=== PATIENT | male | born 1975 | race African-American/Black ===

== ENCOUNTER 2017-04-19 18:44 | Emergency (ER) | payer SELFPAY ==
[~2017-04-19] VITALS: Ht 175.3 cm; Wt 100.0 kg
[~2017-04-19 18:44] MED LIST: APRESOLINE 25MG25 MG PO; ASPIRIN 32325 MG/TAB PO; CARDIZEM120 MG PO; CELEXA 20MG20 MG/TAB PO; CELEXA10 MG PO; DESYREL 50MG50 MG PO; DOXAZOSIN PO; FLEXERIL 1010 MG/TAB PO; LEVAQUIN 5500 MG/TA1 PO; LISINOPRIL/HCTZ1 TA2 PO; LISINOPRIL20 MG PO; LOPRESSOR100 MG PO; MOBIC15 MG PO; MOTRIN 600600 MG/TAB PO; NO HOME MEDICATIONS; PHENERGAN 25 TA25 MG PO; PRILOSEC2.5 MG/Pac PO; PRILOSEC20 M1 PO; PRINZIDE 12.5 M1 TA1 PO; REGLAN 10MG10 MG/TAB PO; ULTRAM 50MG TAB50 MG PO; ZESTRIL 20MG TA20 MG PO; ZOFRAN 4MG T4 MG/TAB PO; ZOLOFT 25MG25 MG PO
[2017-04-19 18:51] VITALS: TEMP 98.2
[2017-04-19] MEDS ORDERED: PEN-VEE K500 MG PO (19:38)
[2017-04-19] MEDS ORDERED: ULTRAM 50MG TAB50 MG PO (19:39)
[2017-04-19] MEDS ORDERED: NORCO 325 MG-51 TAB PO (19:39)
[2017-04-19 19:49] VITALS: BP 160/94; PULSE 65
== END 2017-04-19 19:49 | disposition home or self-care (01) ==
LOC: COL.ER 18:44
DX: K08.89 Other specified disorders of teeth and supporting structures (principal); I10 Essential (primary) hypertension; Z87.891 Personal history of nicotine dependence

== ENCOUNTER 2018-02-20 10:21 | Emergency (ER) | payer SELFPAY ==
[~2018-02-20] VITALS: Ht 175.3 cm; Wt 104.5 kg
[~2018-02-20 10:21] MED LIST changes: +NORCO 325 MG-51 TAB PO; +PEN-VEE K500 MG PO
[2018-02-20 11:30] VITALS: TEMP 98.3
[2018-02-20 11:52] LABS: HEMATOCRIT 49.9 % (42.0-52.0); HEMOGLOBIN 17.3 g/dl (13.5-18.0); MEAN CELL VOLUME 87 fl (80.0-100.0); MEAN CORPUSCULAR HEMOGLOBIN 30 pg (27.0-31.0); MEAN CORPUSCULAR HGB CONC 35 g/dl (33.0-37.0); MEAN PLATELET VOLUME 11.7 fl (7.4-10.4); PLATELET COUNT 244 K/mm3 (130-400); RED BLOOD COUNT 5.75 M/mm3 (4.20-5.60); REDCELL DISTRIBUTION WIDTH-CV 14.4 % (11.5-14.5)
[2018-02-20 12:05] LABS: CALCIUM 10.7 mg/dL (8.4-10.2); CREATININE, serum 2.04 mg/dL (0.66-1.25); EOSINOPHIL 1 % (0-4); LYMPHOCYTE 10 % (20.0-51.0); MAGNESIUM 2.2 mg/dL (1.6-2.3); NEUTROPHILS 67 % (42.0-75.2); POTASSIUM 4.2 mmol/L (3.4-5.0); TOTAL PROTEIN 10.4 gm/dL (6.4-8.2)
[2018-02-20 12:06] LABS: PLATELET ESTIMATE NORMAL (NORMAL)
[2018-02-20] MEDS ORDERED: PHENERGAN 25 TA25 MG PO (15:24)
[2018-02-20] MEDS ORDERED: ZOFRAN ODT4 MG PO (15:24)
[2018-02-20] MEDS ORDERED: NORCO 325 MG-51 TAB PO (15:24)
[2018-02-20 16:22] VITALS: BP 144/100; PULSE 109
== END 2018-02-20 16:35 | disposition home or self-care (01) ==
LOC: COL.ER 10:21
PROVIDERS: Emergency Medicine
DX: R11.2 Nausea with vomiting, unspecified (principal); K44.9 Diaphragmatic hernia without obstruction or gangrene; I10 Essential (primary) hypertension; R74.8 Abnormal levels of other serum enzymes; Z79.82 Long term (current) use of aspirin
CPT/HCPCS: J2405; J2550; J7030; Q9967

== ENCOUNTER 2018-03-03 16:08 | Emergency (ER) | payer SELFPAY ==
[~2018-03-03] VITALS: Ht 175.3 cm; Wt 100.0 kg
[~2018-03-03 16:08] MED LIST changes: +ZOFRAN ODT4 MG PO
[2018-03-03 16:20] VITALS: TEMP 98.2
[2018-03-03 16:41] LABS: BASO # 0.1 (0.0-0.2); BASO % 0.5 % (0.0-2.0); EOS # 0.2 (0.0-0.7); EOS % 1.6 % (0-4.0); GRAN # 8.7 (1.4-6.5); GRAN % 71.4 % (42.2-75.2); HEMATOCRIT 40.5 % (42.0-52.0); HEMOGLOBIN 14.1 g/dl (13.5-18.0); LYMPH # 2.4 (1.2-3.4); LYMPH % 19.6 % (20.0-51.0); MEAN CELL VOLUME 86 fl (80.0-100.0); MEAN CORPUSCULAR HEMOGLOBIN 30 pg (27.0-31.0); MEAN CORPUSCULAR HGB CONC 35 g/dl (33.0-37.0); MEAN PLATELET VOLUME 11.4 fl (7.4-10.4); MONO # 0.8 (0.1-0.6); MONO % 6.7 % (1.7-9.3); PLATELET COUNT 165 K/mm3 (130-400); REDCELL DISTRIBUTION WIDTH-CV 13.2 % (11.5-14.5)
[2018-03-03 16:53] LABS: ALANINE AMINOTRANSFERASE 31 U/L (21-72); ALBUMIN 4.5 gm/dL (3.5-5.0); ALKALINE PHOSPHATASE 71 U/L (50-136); ANION GAP 14 mmol/L (7-16); AST,SGOT 18 U/L (15-37); BILIRUBIN,TOTAL 0.3 mg/dL (0.0-1.0); BLOOD UREA NITROGEN 14 mg/dL (9-20); CALCIUM 9.8 mg/dL (8.4-10.2); CARBON DIOXIDE 28 mmol/L (22-30); CHLORIDE 104 mmol/L (98-107); CREATININE, serum 1.24 mg/dL (0.66-1.25); GLUCOSE 126 mg/dL (74-106); LIPASE 106 U/L (23-300); POTASSIUM 4.3 mmol/L (3.4-5.0); SODIUM 145 mmol/L (137-145); TOTAL PROTEIN 8.3 gm/dL (6.4-8.2)
[2018-03-03 16:56] LABS: ALCOHOL(ethanol),MEDICAL < 10 mg/dL; C-REACTIVE PROTEIN < 0.5 mg/dL (0.0-0.9)
[2018-03-03 17:02] LABS: TROPONIN-I < 0.012 ng/mL (0.000-0.034)
[2018-03-03] MEDS ORDERED: ZOLOFT 50MG50 MG PO (17:26)
[2018-03-03] MEDS ORDERED: PHENERGAN25 MG RC (18:00)
[2018-03-03 18:31] VITALS: BP 166/108
[2018-03-03 19:06] VITALS: PULSE 103
== END 2018-03-03 19:06 | disposition home or self-care (01) ==
LOC: COL.ER 16:08
PROVIDERS: Physician Assistant
DX: R10.12 Left upper quadrant pain (principal); R11.2 Nausea with vomiting, unspecified; F32.9 Major depressive disorder, single episode, unspecified; I42.8 Other cardiomyopathies; Z79.82 Long term (current) use of aspirin
CPT/HCPCS: J2270; J2405; J2550; J7030

== ENCOUNTER → 2018-03-30 | Outpatient (CLI) | payer SELFPAY ==
[2018-03-30] VITALS (7 sets, daily range): BP systolic 150–235; BP diastolic 95–142; PULSE 67–85
[~2018-03-30] VITALS: Ht 175.3 cm; Wt 104.4 kg
[~2018-03-30] MED LIST changes: +ASPIRIN 81M81 MG/TA2 PO; +PHENERGAN25 MG RC; +ZOLOFT 50MG50 MG PO
== END ==
LOC: COL.CARD 07:36
DX: R07.89 Other chest pain (principal)
CPT/HCPCS: A9502; J0360; J2785

== ENCOUNTER 2018-04-05 18:54 | Observation (INO) | payer SELFPAY ==
[~2018-04-05] VITALS: Ht 175.3 cm; Wt 101.9 kg
[2018-04-05] MEDS ORDERED: PHENERGAN 25 TA25 MG PO (19:52)
[2018-04-05 20:01] LABS: COLLECTION METHOD CLEAN CATCH
[2018-04-05 20:08] LABS: ALANINE AMINOTRANSFERASE 26 U/L (21-72); ALBUMIN 4.6 gm/dL (3.5-5.0); ALKALINE PHOSPHATASE 57 U/L (50-136); ANION GAP 19 mmol/L (7-16); AST,SGOT 24 U/L (15-37); BILIRUBIN,TOTAL 1.4 mg/dL (0.0-1.0); BLOOD UREA NITROGEN 43 mg/dL (9-20); CALCIUM 9.4 mg/dL (8.4-10.2); CARBON DIOXIDE 24 mmol/L (22-30); CHLORIDE 93 mmol/L (98-107); CREATINE KINASE 215 U/L (55-170); CREATININE, serum 3.34 mg/dL (0.66-1.25); GLUCOSE 101 mg/dL (74-106); LIPASE 125 U/L (23-300); POTASSIUM 3.3 mmol/L (3.4-5.0); SODIUM 136 mmol/L (137-145); TOTAL PROTEIN 8.7 gm/dL (6.4-8.2)
[2018-04-05 20:12] LABS: C-REACTIVE PROTEIN < 0.5 mg/dL (0.0-0.9)
[2018-04-05 20:14] LABS: HEMATOCRIT 47.9 % (42.0-52.0); HEMOGLOBIN 16.6 g/dl (13.5-18.0); MEAN CELL VOLUME 89 fl (80.0-100.0); MEAN CORPUSCULAR HEMOGLOBIN 31 pg (27.0-31.0); MEAN CORPUSCULAR HGB CONC 35 g/dl (33.0-37.0); PLATELET COUNT 244 K/mm3 (130-400); RED BLOOD COUNT 5.38 M/mm3 (4.20-5.60); REDCELL DISTRIBUTION WIDTH-CV 14.9 % (11.5-14.5)
[2018-04-05 20:15] LABS: HYALINE CAST >12 /lpf; MUCOUS Present /lpf; PH 5 (5-8); SQUAMOUS EPITHELIAL >50 /hpf; URINE APPEARANCE Turbid; URINE BACTERIA Rare /hpf; URINE BILIRUBIN Negative (NEGATIVE); URINE BLOOD Negative (NEGATIVE); URINE COLOR Amber; URINE GLUCOSE Negative (NEGATIVE); URINE KETONE Trace (NEGATIVE); URINE LEUKOCYTE ESTERASE 1+ (NEGATIVE); URINE NITRATE Negative (NEGATIVE); URINE PROTEIN(semi-quant) 2+ (NEGATIVE)
[2018-04-05 20:42] LABS: BAND 2 % (0-10); LYMPHOCYTE 28 % (20.0-51.0); NEUTROPHILS 56 % (42.0-75.2); PLATELET ESTIMATE NORMAL (NORMAL)
[2018-04-05 21:05] LABS: COLLECTION METHOD CLEAN CATCH
[2018-04-05 21:13] LABS: HYALINE CAST >12 /lpf; MUCOUS Present /lpf; PH 5 (5-8); URINE APPEARANCE Turbid; URINE BACTERIA Rare /hpf; URINE BILIRUBIN Positive (NEGATIVE); URINE BLOOD Negative (NEGATIVE); URINE COLOR Amber; URINE GLUCOSE Negative (NEGATIVE); URINE KETONE Negative (NEGATIVE); URINE LEUKOCYTE ESTERASE Negative (NEGATIVE); URINE NITRATE Negative (NEGATIVE); URINE PROTEIN(semi-quant) 2+ (NEGATIVE)
[2018-04-05] MEDS ORDERED: REGLAN 10MG10 MG/TAB PO (21:34)
[2018-04-05 22:21] VITALS: BP 110/56; PULSE 76; TEMP 98.9
[2018-04-05 22:46] VITALS: BP 98/63; PULSE 79; TEMP 98.1
[2018-04-05 23:00] VITALS: BP 101/57; PULSE 79; TEMP 98.4
[2018-04-05 23:15] VITALS: BP 103/54; PULSE 79; TEMP 98.4
[2018-04-06] VITALS (7 sets, daily range): BP systolic 105–136; BP diastolic 47–76; PULSE 53–76; TEMP 97.9–98.6
[2018-04-06 07:33] LABS: HEMATOCRIT 41.8 % (42.0-52.0); MEAN CELL VOLUME 91 fl (80.0-100.0); MEAN CORPUSCULAR HEMOGLOBIN 31 pg (27.0-31.0); MEAN CORPUSCULAR HGB CONC 34 g/dl (33.0-37.0); MEAN PLATELET VOLUME 11.8 fl (7.4-10.4); PLATELET COUNT 190 K/mm3 (130-400); RED BLOOD COUNT 4.58 M/mm3 (4.20-5.60); REDCELL DISTRIBUTION WIDTH-CV 14.9 % (11.5-14.5)
[2018-04-06 07:41] LABS: CALCIUM 8.1 mg/dL (8.4-10.2); CREATININE, serum 2.02 mg/dL (0.66-1.25); POTASSIUM 3.9 mmol/L (3.4-5.0)
[2018-04-06 07:44] LABS: HEMOGLOBIN 14.1 g/dl (13.5-18.0)
[2018-04-06 09:28] LABS: BAND 2 % (0-10); LYMPHOCYTE 26 % (20.0-51.0); METAMYELOCYTE 1 % (0-0); NEUTROPHILS 60 % (42.0-75.2); PLATELET ESTIMATE NORMAL (NORMAL)
[2018-04-07 04:20] VITALS: BP 134/94; PULSE 63; TEMP 97.5
[2018-04-07 06:53] LABS: CALCIUM 8.2 mg/dL (8.4-10.2); CREATININE, serum 1.13 mg/dL (0.66-1.25); POTASSIUM 3.9 mmol/L (3.4-5.0)
[2018-04-07 07:58] VITALS: BP 146/94; PULSE 72; TEMP 97.8
[2018-04-07 11:14] VITALS: BP 144/93; PULSE 66; TEMP 97.8
== END 2018-04-07 14:30 | disposition home or self-care (01) ==
LOC: COL.ER 18:54 → MEDICAL 20:35
PROVIDERS: Emergency Medicine; Nurse Practitioner Family
DX: N17.9 Acute kidney failure, unspecified (principal); E87.2 Acidosis; G43.A0 Cyclical vomiting, in migraine, not intractable; R68.84 Jaw pain; H92.02 Otalgia, left ear; E87.6 Hypokalemia; D72.829 Elevated white blood cell count, unspecified; I42.2 Other hypertrophic cardiomyopathy; F12.10 Cannabis abuse, uncomplicated; I10 Essential (primary) hypertension; I95.9 Hypotension, unspecified; E44.0 Moderate protein-calorie malnutrition; Z79.82 Long term (current) use of aspirin; Z79.899 Other long term (current) drug therapy; Z87.11 Personal history of peptic ulcer disease
CPT/HCPCS: C9113; G0378; J0696; J1644; J2405; J3010; J3480; J7030

== ENCOUNTER 2018-05-29 17:42 | Inpatient (IN) | payer SELFPAY ==
[~2018-05-29] VITALS: Ht 175.3 cm; Wt 89.8 kg
[2018-05-29 18:27] LABS: BASO # 0.1 (0.0-0.2); BASO % 0.3 % (0.0-2.0); EOS % 0.1 % (0-4.0); GRAN # 15.5 (1.4-6.5); GRAN % 79.7 % (42.2-75.2); HEMOGLOBIN 17.6 g/dl (13.5-18.0); LYMPH % 10.1 % (20.0-51.0); MEAN CELL VOLUME 90 fl (80.0-100.0); MEAN CORPUSCULAR HEMOGLOBIN 30 pg (27.0-31.0); MEAN CORPUSCULAR HGB CONC 34 g/dl (33.0-37.0); MEAN PLATELET VOLUME 12.2 fl (7.4-10.4); MONO # 1.8 (0.1-0.6); MONO % 9.2 % (1.7-9.3); PLATELET COUNT 171 K/mm3 (130-400); RED BLOOD COUNT 5.83 M/mm3 (4.20-5.60); REDCELL DISTRIBUTION WIDTH-CV 13.1 % (11.5-14.5)
[2018-05-29 18:30] LABS: HEMATOCRIT 52.4 % (42.0-52.0)
[2018-05-29 18:37] LABS: ALBUMIN 5.4 gm/dL (3.5-5.0); BILIRUBIN,TOTAL 1.1 mg/dL (0.0-1.0); CALCIUM 11.1 mg/dL (8.4-10.2); CREATININE, serum 1.67 mg/dL (0.66-1.25); POTASSIUM 5.4 mmol/L (3.4-5.0); TOTAL PROTEIN 9.8 gm/dL (6.4-8.2)
[2018-05-29 22:22] LABS: COLLECTION METHOD CLEAN CATCH
[2018-05-29 22:30] LABS: MUCOUS Present /lpf; PH 5 (5-8); URINE APPEARANCE Cloudy; URINE BACTERIA None Seen /hpf; URINE BILIRUBIN Negative (NEGATIVE); URINE BLOOD 2+ (NEGATIVE); URINE COLOR Amber; URINE GLUCOSE Negative (NEGATIVE); URINE KETONE Trace (NEGATIVE); URINE LEUKOCYTE ESTERASE Negative (NEGATIVE); URINE NITRATE Negative (NEGATIVE); URINE PROTEIN(semi-quant) 3+ (NEGATIVE); URINE RBC 0-2 /hpf; URINE UROBILINOGEN Negative (NEGATIVE)
[2018-05-29 23:31] VITALS: BP 180/111; PULSE 85; TEMP 97.4
[2018-05-29 23:39] VITALS: O2SAT 96
[2018-05-29 23:41] VITALS: O2SAT 96
[2018-05-29 23:45] VITALS: O2SAT 96
[2018-05-29 23:46] VITALS: O2SAT 98
[2018-05-29 23:48] VITALS: O2SAT 97; O2SAT 99
[2018-05-30] VITALS (522 sets, daily range): BP systolic 122–196; BP diastolic 73–124; PULSE 71–113; TEMP 97.6–98; O2SAT 85–100
[2018-05-30] MEDS ORDERED: ZOFRAN ODT4 MG PO (00:16)
[2018-05-30 07:40] LABS: BASO # 0.1 (0.0-0.2); BASO % 0.3 % (0.0-2.0); EOS % 0.2 % (0-4.0); GRAN # 14.6 (1.4-6.5); GRAN % 78.5 % (42.2-75.2); HEMATOCRIT 51.3 % (42.0-52.0); HEMOGLOBIN 17.2 g/dl (13.5-18.0); LYMPH # 2.4 (1.2-3.4); MEAN CELL VOLUME 91 fl (80.0-100.0); MEAN CORPUSCULAR HEMOGLOBIN 30 pg (27.0-31.0); MEAN CORPUSCULAR HGB CONC 34 g/dl (33.0-37.0); MEAN PLATELET VOLUME 11.9 fl (7.4-10.4); MONO # 1.4 (0.1-0.6); MONO % 7.5 % (1.7-9.3); PLATELET COUNT 174 K/mm3 (130-400); RED BLOOD COUNT 5.65 M/mm3 (4.20-5.60); REDCELL DISTRIBUTION WIDTH-CV 13.2 % (11.5-14.5)
[2018-05-30 07:49] LABS: BILIRUBIN,TOTAL 0.9 mg/dL (0.0-1.0); CALCIUM 9.9 mg/dL (8.4-10.2); CREATININE, serum 1.26 mg/dL (0.66-1.25); POTASSIUM 3.5 mmol/L (3.4-5.0); TOTAL PROTEIN 8.8 gm/dL (6.4-8.2)
[2018-05-30 08:03] LABS: TROPONIN-I 0.05 ng/mL (0.000-0.034)
[2018-05-31] VITALS (9 sets, daily range): BP systolic 108–199; BP diastolic 67–124; PULSE 62–86; TEMP 97.9–98.9; O2SAT 98–100
[2018-05-31 06:14] LABS: BASO # 0.1 (0.0-0.2); BASO % 0.3 % (0.0-2.0); EOS # 0.2 (0.0-0.7); EOS % 0.9 % (0-4.0); GRAN # 12.4 (1.4-6.5); GRAN % 73.6 % (42.2-75.2); HEMATOCRIT 50.8 % (42.0-52.0); HEMOGLOBIN 17.5 g/dl (13.5-18.0); LYMPH # 2.9 (1.2-3.4); MEAN CELL VOLUME 89 fl (80.0-100.0); MEAN CORPUSCULAR HEMOGLOBIN 31 pg (27.0-31.0); MEAN CORPUSCULAR HGB CONC 34 g/dl (33.0-37.0); MEAN PLATELET VOLUME 11.8 fl (7.4-10.4); MONO # 1.3 (0.1-0.6); MONO % 7.9 % (1.7-9.3); PLATELET COUNT 169 K/mm3 (130-400); RED BLOOD COUNT 5.74 M/mm3 (4.20-5.60); REDCELL DISTRIBUTION WIDTH-CV 12.8 % (11.5-14.5)
[2018-05-31 06:26] LABS: CALCIUM 9.9 mg/dL (8.4-10.2); CREATININE, serum 1.04 mg/dL (0.66-1.25); POTASSIUM 3.4 mmol/L (3.4-5.0)
[2018-06-01 03:59] VITALS: BP 121/45; PULSE 84; TEMP 97.4
[2018-06-01 07:34] VITALS: BP 120/69; PULSE 64; TEMP 98.1
[2018-06-01] MEDS ORDERED: COREG 25MG25 MG/TAB PO (07:56)
[2018-06-01 08:43] LABS: BASO # 0.1 (0.0-0.2); BASO % 0.4 % (0.0-2.0); EOS # 0.2 (0.0-0.7); EOS % 1.5 % (0-4.0); GRAN # 9.1 (1.4-6.5); LYMPH % 21.6 % (20.0-51.0); MEAN CELL VOLUME 90 fl (80.0-100.0); MEAN CORPUSCULAR HGB CONC 34 g/dl (33.0-37.0); MONO # 1.4 (0.1-0.6); MONO % 10.3 % (1.7-9.3); PLATELET COUNT 199 K/mm3 (130-400); RED BLOOD COUNT 5.96 M/mm3 (4.20-5.60); REDCELL DISTRIBUTION WIDTH-CV 12.5 % (11.5-14.5)
[2018-06-01 08:44] LABS: HEMATOCRIT 53.9 % (42.0-52.0); HEMOGLOBIN 18.1 g/dl (13.5-18.0); MEAN CORPUSCULAR HEMOGLOBIN 30 pg (27.0-31.0)
[2018-06-01 08:54] LABS: CALCIUM 10.6 mg/dL (8.4-10.2); CREATININE, serum 2.58 mg/dL (0.66-1.25); POTASSIUM 3.8 mmol/L (3.4-5.0)
[2018-06-01 10:06] LABS: CALCIUM 10.5 mg/dL (8.4-10.2); CREATININE, serum 2.44 mg/dL (0.66-1.25); POTASSIUM 3.8 mmol/L (3.4-5.0)
[2018-06-01 11:34] VITALS: BP 115/64; PULSE 62; TEMP 98.1
[2018-06-01 16:23] VITALS: BP 120/80; PULSE 79; TEMP 98.9
[2018-06-01 20:20] VITALS: BP 91/46; PULSE 80; TEMP 98.5
[2018-06-02 00:09] VITALS: BP 88/58; PULSE 72; TEMP 98.8
[2018-06-02 04:44] VITALS: BP 131/80; PULSE 64; TEMP 98.3
[2018-06-02 06:58] LABS: BASO # 0.1 (0.0-0.2); BASO % 0.5 % (0.0-2.0); EOS # 0.4 (0.0-0.7); EOS % 2.9 % (0-4.0); GRAN # 7.5 (1.4-6.5); GRAN % 57.8 % (42.2-75.2); HEMATOCRIT 49.1 % (42.0-52.0); HEMOGLOBIN 16.5 g/dl (13.5-18.0); LYMPH # 3.6 (1.2-3.4); LYMPH % 28.1 % (20.0-51.0); MEAN CELL VOLUME 90 fl (80.0-100.0); MEAN CORPUSCULAR HEMOGLOBIN 30 pg (27.0-31.0); MEAN CORPUSCULAR HGB CONC 34 g/dl (33.0-37.0); MEAN PLATELET VOLUME 12.1 fl (7.4-10.4); MONO # 1.4 (0.1-0.6); MONO % 10.4 % (1.7-9.3); PLATELET COUNT 191 K/mm3 (130-400); RED BLOOD COUNT 5.44 M/mm3 (4.20-5.60); REDCELL DISTRIBUTION WIDTH-CV 12.4 % (11.5-14.5)
[2018-06-02 07:14] LABS: CALCIUM 9.5 mg/dL (8.4-10.2); CREATININE, serum 2.91 mg/dL (0.66-1.25); POTASSIUM 3.3 mmol/L (3.4-5.0)
[2018-06-02 08:07] VITALS: BP 121/72; PULSE 66; TEMP 98.5
[2018-06-02 13:14] VITALS: BP 124/86; PULSE 85; TEMP 98.6
[2018-06-02 15:18] LABS: COLLECTION METHOD CLEAN CATCH
[2018-06-02 15:33] LABS: TRICYCLIC ANTIDEPRESS URINE NEGATIVE
[2018-06-02 15:35] LABS: URINE PROTEIN:CREAT RATIO 0.04 (0.00-0.14)
[2018-06-02 15:36] LABS: HYALINE CAST >12 /lpf; MUCOUS Present /lpf; PH 5 (5-8); URINE APPEARANCE Hazy; URINE BACTERIA None Seen /hpf; URINE BILIRUBIN Negative (NEGATIVE); URINE BLOOD Negative (NEGATIVE); URINE COLOR Yellow; URINE GLUCOSE Negative (NEGATIVE); URINE KETONE Negative (NEGATIVE); URINE LEUKOCYTE ESTERASE Negative (NEGATIVE); URINE NITRATE Negative (NEGATIVE); URINE PROTEIN(semi-quant) 1+ (NEGATIVE); URINE RBC 0-2 /hpf; URINE UROBILINOGEN Negative (NEGATIVE)
[2018-06-02 15:43] LABS: CREATININE, serum 2.02 mg/dL (0.66-1.25); FRACTIONAL EXCRETION OF NA+ 0.2 %
[2018-06-02 15:50] VITALS: BP 124/80; PULSE 70; TEMP 98.6
[2018-06-02 19:33] VITALS: BP 123/75; PULSE 73; TEMP 98.8
[2018-06-03 00:23] VITALS: BP 111/64; PULSE 61; TEMP 98.6
[2018-06-03 04:19] VITALS: BP 147/85; PULSE 58; TEMP 98.2
[2018-06-03 07:40] VITALS: BP 129/81; PULSE 63; TEMP 98.5
[2018-06-03 12:18] VITALS: BP 178/101; PULSE 62; TEMP 98.7
[2018-06-03 12:35] LABS: CALCIUM 9.5 mg/dL (8.4-10.2); CREATININE, serum 1.41 mg/dL (0.66-1.25); POTASSIUM 3.8 mmol/L (3.4-5.0)
[2018-06-03 15:43] VITALS: BP 177/108; PULSE 67; TEMP 98.5
[2018-06-03 20:05] VITALS: BP 174/125; PULSE 73; TEMP 98.5
[2018-06-04] VITALS (9 sets, daily range): BP systolic 134–208; BP diastolic 69–120; PULSE 64–72; TEMP 97.6–98.8
[2018-06-04 08:40] LABS: CALCIUM 9.4 mg/dL (8.4-10.2); CREATININE, serum 1.29 mg/dL (0.66-1.25); POTASSIUM 3.8 mmol/L (3.4-5.0)
[2018-06-04 09:27] LABS: BASO # 0.1 (0.0-0.2); BASO % 0.6 % (0.0-2.0); EOS # 0.3 (0.0-0.7); EOS % 2.7 % (0-4.0); GRAN # 7.8 (1.4-6.5); GRAN % 62.4 % (42.2-75.2); HEMATOCRIT 45.5 % (42.0-52.0); HEMOGLOBIN 15.6 g/dl (13.5-18.0); LYMPH % 23.9 % (20.0-51.0); MEAN CELL VOLUME 90 fl (80.0-100.0); MEAN CORPUSCULAR HEMOGLOBIN 31 pg (27.0-31.0); MEAN CORPUSCULAR HGB CONC 34 g/dl (33.0-37.0); MEAN PLATELET VOLUME 12.9 fl (7.4-10.4); MONO # 1.3 (0.1-0.6); MONO % 10.2 % (1.7-9.3); PLATELET COUNT 162 K/mm3 (130-400); RED BLOOD COUNT 5.07 M/mm3 (4.20-5.60)
[2018-06-05 00:50] VITALS: BP 145/77; PULSE 70; TEMP 97.8
[2018-06-05 04:21] VITALS: BP 143/74; PULSE 64; TEMP 98.7
[2018-06-05 07:38] LABS: BASO # 0.1 (0.0-0.2); BASO % 0.6 % (0.0-2.0); EOS # 0.4 (0.0-0.7); EOS % 4.6 % (0-4.0); GRAN # 4.3 (1.4-6.5); GRAN % 47.9 % (42.2-75.2); HEMATOCRIT 40.8 % (42.0-52.0); LYMPH # 3.2 (1.2-3.4); MEAN CELL VOLUME 90 fl (80.0-100.0); MEAN CORPUSCULAR HEMOGLOBIN 30 pg (27.0-31.0); MEAN CORPUSCULAR HGB CONC 33 g/dl (33.0-37.0); MEAN PLATELET VOLUME 12.8 fl (7.4-10.4); MONO % 10.7 % (1.7-9.3); PLATELET COUNT 138 K/mm3 (130-400); RED BLOOD COUNT 4.53 M/mm3 (4.20-5.60)
[2018-06-05 07:51] LABS: CALCIUM 8.8 mg/dL (8.4-10.2); CREATININE, serum 1.17 mg/dL (0.66-1.25); HEMOGLOBIN 13.6 g/dl (13.5-18.0); POTASSIUM 3.4 mmol/L (3.4-5.0)
[2018-06-05 12:27] VITALS: BP 155/85; PULSE 79; TEMP 98.2
[2018-06-05] MEDS ORDERED: PROTONIX 40MG T40 MG PO (15:09)
[2018-06-05] MEDS ORDERED: NORVASC 10MG10 MG PO (15:09)
[2018-06-05] MEDS ORDERED: COENZYME Q-10200 M1 PO (15:09)
[2018-06-05] MEDS ORDERED: AMITRIPTYLINE H50 M1 PO (15:09)
[2018-06-05] MEDS ORDERED: ZOFRAN 4MG T4 MG/TAB PO (15:09)
[2018-06-05] MEDS ORDERED: APRESOLINE 25MG25 MG PO (15:09)
[2018-06-05] MEDS ORDERED: L-CARNITINE500 M1 PO (15:09)
[2018-06-05 18:56] LABS: KAPPA FREE LIGHT CHAIN-SERUM 1.53 mg/dL (()); LAMDA FREE LIGHT CHAIN SERUM 1.84 mg/dL (())
== END 2018-06-05 16:57 | disposition home or self-care (01) | DRG 682 ==
LOC: COL.ER 17:42 → ICU 22:26 → MEDICAL 05-31 15:39
PROVIDERS: Family Medicine; Hospitalist; Internal Medicine Gastroenterology; Internal Medicine Nephrology; Nurse Practitioner Family; Physician Assistant
PROC: 0DB68ZX Excision of Stomach, Via Natural or Artificial Opening Endoscopic, Diagnostic (ICD-10-PCS; principal; 2018-06-04 07:30)
DX: N17.9 Acute kidney failure, unspecified (principal); I21.A1 Myocardial infarction type 2; I42.1 Obstructive hypertrophic cardiomyopathy; I16.0 Hypertensive urgency; E87.5 Hyperkalemia; Z87.11 Personal history of peptic ulcer disease; F12.10 Cannabis abuse, uncomplicated; G43.A0 Cyclical vomiting, in migraine, not intractable; K64.9 Unspecified hemorrhoids
CPT/HCPCS: 99223-AI; 99232-AI; 99239; A9541; C9113; G0378; J0360; J0780; J1644; J2405; J2550; J2704; J7030; J7050

== ENCOUNTER 2018-07-17 10:43 | Emergency (ER) | payer SELFPAY ==
[~2018-07-17] VITALS: Ht 175.3 cm; Wt 90.9 kg
[~2018-07-17 10:43] MED LIST changes: +AMITRIPTYLINE H50 M1 PO; +COENZYME Q-10200 M1 PO; +COREG 25MG25 MG/TAB PO; +L-CARNITINE500 M1 PO; +NORVASC 10MG10 MG PO; +PROTONIX 40MG T40 MG PO
[2018-07-17 14:21] VITALS: TEMP 98.6
[2018-07-17 15:16] LABS: COLLECTION METHOD CLEAN CATCH
[2018-07-17 15:26] LABS: MUCOUS Present /lpf; PH 5 (5-8); URINE APPEARANCE Cloudy; URINE BACTERIA Rare /hpf; URINE BILIRUBIN Negative (NEGATIVE); URINE BLOOD Negative (NEGATIVE); URINE COLOR Yellow; URINE GLUCOSE Negative (NEGATIVE); URINE KETONE Negative (NEGATIVE); URINE LEUKOCYTE ESTERASE Negative (NEGATIVE); URINE NITRATE Negative (NEGATIVE); URINE PROTEIN(semi-quant) 1+ (NEGATIVE); URINE RBC 0-2 /hpf
[2018-07-17 15:41] LABS: BASO # 0.1 (0.0-0.2); BASO % 0.5 % (0.0-2.0); EOS # 0.4 (0.0-0.7); EOS % 3.5 % (0-4.0); GRAN % 58.4 % (42.2-75.2); HEMATOCRIT 45.9 % (42.0-52.0); HEMOGLOBIN 15.5 g/dl (13.5-18.0); LYMPH # 3.3 (1.2-3.4); LYMPH % 27.8 % (20.0-51.0); MEAN CELL VOLUME 89 fl (80.0-100.0); MEAN CORPUSCULAR HEMOGLOBIN 30 pg (27.0-31.0); MEAN CORPUSCULAR HGB CONC 34 g/dl (33.0-37.0); MEAN PLATELET VOLUME 11.3 fl (7.4-10.4); MONO # 1.1 (0.1-0.6); MONO % 9.5 % (1.7-9.3); PLATELET COUNT 198 K/mm3 (130-400); RED BLOOD COUNT 5.15 M/mm3 (4.20-5.60); REDCELL DISTRIBUTION WIDTH-CV 12.9 % (11.5-14.5)
[2018-07-17 16:03] LABS: ALBUMIN 4.5 gm/dL (3.5-5.0); BILIRUBIN,TOTAL 0.6 mg/dL (0.0-1.0); C-REACTIVE PROTEIN 0.5 mg/dL (0.0-0.9); CALCIUM 9.1 mg/dL (8.4-10.2); CREATININE, serum 1.15 mg/dL (0.66-1.25); POTASSIUM 3.4 mmol/L (3.4-5.0); TOTAL PROTEIN 7.7 gm/dL (6.4-8.2)
[2018-07-17 17:43] VITALS: BP 136/80; PULSE 60
[2018-07-18] MEDS ORDERED: PHENERGAN 25 TA25 MG PO (19:37)
== END 2018-07-17 17:50 | disposition home or self-care (01) ==
LOC: COL.ER 10:43
PROVIDERS: Nurse Practitioner
DX: B34.9 Viral infection, unspecified (principal); E86.0 Dehydration; R53.81 Other malaise; I10 Essential (primary) hypertension; F12.90 Cannabis use, unspecified, uncomplicated
CPT/HCPCS: J2405; J7030

== ENCOUNTER 2018-07-18 16:24 | Emergency (ER) | payer SELFPAY ==
[~2018-07-18] VITALS: Ht 175.3 cm; Wt 90.9 kg
[2018-07-18 16:28] VITALS: BP 195/116; TEMP 98.1
[2018-07-18 18:42] LABS: BASO % 0.1 % (0.0-2.0); EOS % 0.1 % (0-4.0); GRAN # 11.5 (1.4-6.5); GRAN % 85.1 % (42.2-75.2); HEMATOCRIT 46.5 % (42.0-52.0); HEMOGLOBIN 16.1 g/dl (13.5-18.0); LYMPH # 1.2 (1.2-3.4); LYMPH % 8.9 % (20.0-51.0); MEAN CELL VOLUME 87 fl (80.0-100.0); MEAN CORPUSCULAR HEMOGLOBIN 30 pg (27.0-31.0); MEAN CORPUSCULAR HGB CONC 35 g/dl (33.0-37.0); MEAN PLATELET VOLUME 11.4 fl (7.4-10.4); MONO # 0.7 (0.1-0.6); MONO % 5.4 % (1.7-9.3); PLATELET COUNT 192 K/mm3 (130-400); RED BLOOD COUNT 5.34 M/mm3 (4.20-5.60); REDCELL DISTRIBUTION WIDTH-CV 12.5 % (11.5-14.5)
[2018-07-18 18:55] LABS: ALBUMIN 4.9 gm/dL (3.5-5.0); BILIRUBIN,TOTAL 0.6 mg/dL (0.0-1.0); CALCIUM 9.9 mg/dL (8.4-10.2); CREATININE, serum 1.24 mg/dL (0.66-1.25); POTASSIUM 3.6 mmol/L (3.4-5.0); TOTAL PROTEIN 8.5 gm/dL (6.4-8.2)
[2018-07-18] MEDS ORDERED: PHENERGAN 25 TA25 MG PO (19:37)
[2018-07-18 21:11] VITALS: PULSE 87
== END 2018-07-18 21:13 | disposition home or self-care (01) ==
LOC: COL.ER 16:24
PROVIDERS: Emergency Medicine
DX: N19 Unspecified kidney failure (principal); R11.2 Nausea with vomiting, unspecified; I10 Essential (primary) hypertension
CPT/HCPCS: J2060; J2405; J7030

== ENCOUNTER 2018-11-26 10:32 | Emergency (ER) | payer BC ==
[~2018-11-26] VITALS: Ht 175.3 cm; Wt 90.9 kg
[2018-11-26 10:36] VITALS: TEMP 97.9
[2018-11-26 11:05] LABS: BASO # 0.1 (0.0-0.2); BASO % 0.4 % (0.0-2.0); EOS # 0.1 (0.0-0.7); EOS % 0.7 % (0-4.0); GRAN % 66.8 % (42.2-75.2); HEMOGLOBIN 17.8 g/dl (13.5-18.0); LYMPH # 3.3 (1.2-3.4); LYMPH % 24.2 % (20.0-51.0); MEAN CELL VOLUME 90 fl (80.0-100.0); MEAN CORPUSCULAR HEMOGLOBIN 30 pg (27.0-31.0); MEAN CORPUSCULAR HGB CONC 34 g/dl (33.0-37.0); MEAN PLATELET VOLUME 11.6 fl (7.4-10.4); MONO % 7.6 % (1.7-9.3); PLATELET COUNT 208 K/mm3 (130-400); RED BLOOD COUNT 5.91 M/mm3 (4.20-5.60); REDCELL DISTRIBUTION WIDTH-CV 13.4 % (11.5-14.5)
[2018-11-26 11:20] LABS: BILIRUBIN,TOTAL 0.8 mg/dL (0.0-1.0); CALCIUM 10.4 mg/dL (8.4-10.2); CREATININE, serum 1.37 mg/dL (0.66-1.25); MAGNESIUM 2.4 mg/dL (1.6-2.3); PHOSPHOROUS 3.7 mg/dL (2.5-4.5); POTASSIUM 3.9 mmol/L (3.4-5.0); TOTAL PROTEIN 8.7 gm/dL (6.4-8.2)
[2018-11-26 11:22] LABS: COLLECTION METHOD CLEAN CATCH
[2018-11-26] MEDS ORDERED: APRESOLINE 25MG25 MG PO (11:23)
[2018-11-26] MEDS ORDERED: ASPIRIN 81M81 MG/TA2 PO (11:25)
[2018-11-26 11:36] LABS: MUCOUS Present /lpf; PH 5 (5-8); URINE APPEARANCE Hazy; URINE BACTERIA Rare /hpf; URINE BILIRUBIN Negative (NEGATIVE); URINE BLOOD Negative (NEGATIVE); URINE COLOR Amber; URINE GLUCOSE Negative (NEGATIVE); URINE KETONE 1+ (NEGATIVE); URINE LEUKOCYTE ESTERASE Negative (NEGATIVE); URINE NITRATE Negative (NEGATIVE); URINE PROTEIN(semi-quant) 2+ (NEGATIVE); URINE UROBILINOGEN >=4.0 mg/dL (NEGATIVE)
[2018-11-26] MEDS ORDERED: CEFTIN500 MG PO (14:28)
[2018-11-26 14:55] VITALS: BP 124/96; PULSE 68
== END 2018-11-26 14:40 | disposition home or self-care (01) ==
LOC: COL.ER 10:32
PROVIDERS: Emergency Medicine
DX: N39.0 Urinary tract infection, site not specified (principal); R11.10 Vomiting, unspecified; R19.7 Diarrhea, unspecified; E86.9 Volume depletion, unspecified; I10 Essential (primary) hypertension; I42.9 Cardiomyopathy, unspecified
CPT/HCPCS: A4216; J0696; J0780; J2405; J7030

== ENCOUNTER 2021-05-06 04:58 | Inpatient (IN) | payer SELFPAY ==
[~2021-05-06] VITALS: Ht 175.3 cm; Wt 90.7 kg
[~2021-05-06 04:58] MED LIST changes: +CEFTIN500 MG PO
[2021-05-06 05:19] LABS: BASO # 0.1 (0.0-0.2); BASO % 0.6 % (0.0-2.0); EOS # 0.4 (0.0-0.7); EOS % 4.3 % (0-4.0); GRAN # 5.3 (1.4-6.5); GRAN % 62.8 % (42.2-75.2); HEMATOCRIT 41.7 % (42.0-52.0); HEMOGLOBIN 13.9 g/dl (13.5-18.0); MEAN CELL VOLUME 88 fl (80.0-100.0); MEAN CORPUSCULAR HEMOGLOBIN 29 pg (27.0-31.0); MEAN CORPUSCULAR HGB CONC 33 g/dl (33.0-37.0); MEAN PLATELET VOLUME 11.1 fl (7.4-10.4); MONO # 0.8 (0.1-0.6); MONO % 9.1 % (1.7-9.3); PLATELET COUNT 193 K/mm3 (130-400); RED BLOOD COUNT 4.74 M/mm3 (4.20-5.60); REDCELL DISTRIBUTION WIDTH-CV 12.7 % (11.5-14.5)
[2021-05-06 05:29] LABS: ALBUMIN 4.4 gm/dL (3.5-5.0); BILIRUBIN,TOTAL 0.3 mg/dL (0.0-1.0); CALCIUM 9.5 mg/dL (8.4-10.2); CREATININE, serum 1.64 (0.66-1.25); POTASSIUM 3.4 mmol/L (3.4-5.0); TOTAL PROTEIN 7.7 gm/dL (6.4-8.2)
[2021-05-06 05:31] LABS: COLLECTION METHOD CLEAN CATCH
[2021-05-06 05:40] LABS: PH 5 (5-8); URINE APPEARANCE Cloudy; URINE BACTERIA None Seen /hpf; URINE BILIRUBIN Negative (NEGATIVE); URINE BLOOD 3+ (NEGATIVE); URINE COLOR Yellow; URINE GLUCOSE Negative (NEGATIVE); URINE KETONE Negative (NEGATIVE); URINE LEUKOCYTE ESTERASE 3+ (NEGATIVE); URINE NITRATE Negative (NEGATIVE); URINE PROTEIN(semi-quant) 2+ (NEGATIVE); URINE RBC >50 /hpf; URINE UROBILINOGEN Negative (NEGATIVE)
[2021-05-06 05:42] LABS: TROPONIN-I 0.041 ng/mL (0.000-0.035)
[2021-05-06] MEDS ORDERED: NORVASC 10MG10 MG PO (06:40)
[2021-05-06] MEDS ORDERED: COREG12.5 MG PO (06:40)
[2021-05-06] MEDS ORDERED: CEPHALEXIN500 M1 PO (06:41)
[2021-05-06] MEDS ORDERED: ASPIRIN E.C. 8181 MG PO (14:16)
[2021-05-06] MEDS ORDERED: EXCEDRIN1 TAB PO (14:17)
[2021-05-06 14:23] VITALS: BP 177/123; PULSE 75; TEMP 98
--- NOTE | 2021-05-06 14:34 | NUR ---
PT BROUGHT UP TO ROOM, ADMISSION COMPLETED, PT ADMITTED TO RECREATIONALLY USING METH AND MARIJUANA, REPORTS USING METH "A COUPLE DAYS AGO WITH A FRIEND". PT BP ELEVATED, VITALS TAKEN, PT REPORTS "EYES HURTING". MIMI REYES NOTIFIED PT WAS HERE AND BP RESULT GIVEN ALONG WITH NEWS OF DRUG USE.
[2021-05-06 16:11] LABS: TRICYCLIC ANTIDEPRESS URINE NEGATIVE
[2021-05-06 16:37] VITALS: BP 188/125; PULSE 72; TEMP 97.8
[2021-05-06 16:46] LABS: TROPONIN-I 0.652 ng/mL (0.000-0.035)
[2021-05-06 18:09] VITALS: BP 188/113
--- NOTE | 2021-05-06 18:22 | NUR ---
upon reassessment bp still elevated, prn hydralazine given along with tylenol for headache. will reassess bp.
[2021-05-06 18:39] VITALS: BP 144/92
--- NOTE | 2021-05-06 19:22 | NUR ---
Received report from Thuy. Patient states he has mild headache now. Blood pressure is much lower now. With IV on left AC with NS at 100ml/hr. He is on room air. Denies any pain.
[2021-05-06 20:21] VITALS: BP 138/78; PULSE 78; TEMP 97.7
[2021-05-06 23:37] VITALS: BP 141/94; PULSE 76; TEMP 97.4
[2021-05-07] VITALS (7 sets, daily range): BP systolic 118–173; BP diastolic 76–110; PULSE 76–88; TEMP 97.8–98
--- NOTE | 2021-05-07 02:40 | NUR ---
Received report from MORRIS Wilson. Patient resting in bed with eyes closed. No acute distress noted. Call light within reach. Will continue to monitor.
--- NOTE | 2021-05-07 06:11 | NUR ---
Patient's BP 171/110 at 0500 this morning. Patient denies chest pain, headache or dizziness. Patient states tired. PRN hydralazine given per JAN. BP recheck was 161/97 at 0600. Patient resting in bed with eyes closed. No acute distress noted. Call light within reach. Will give report to day shift nurse.
[2021-05-07 07:00] LABS: HEMATOCRIT 41.9 % (42.0-52.0); HEMOGLOBIN 13.9 g/dl (13.5-18.0); MEAN CELL VOLUME 87 fl (80.0-100.0); MEAN CORPUSCULAR HEMOGLOBIN 29 pg (27.0-31.0); MEAN CORPUSCULAR HGB CONC 33 g/dl (33.0-37.0); PLATELET COUNT 203 K/mm3 (130-400); RED BLOOD COUNT 4.83 M/mm3 (4.20-5.60); REDCELL DISTRIBUTION WIDTH-CV 13.3 % (11.5-14.5)
--- NOTE | 2021-05-07 07:08 | NUR ---
PT SLEEPING COMFORTABLY IN ROOM, NO OTHER NEEDS
[2021-05-07 07:14] LABS: CALCIUM 8.5 mg/dL (8.4-10.2); CHOLESTEROL RISK RATIO 3.5; CREATININE, serum 1.21 (0.66-1.25); POTASSIUM 3.4 mmol/L (3.4-5.0)
[2021-05-07 07:52] LABS: TROPONIN-I 0.482 ng/mL (0.000-0.035)
--- NOTE | 2021-05-07 10:16 | NUR ---
Several visit attempts; Developmental Mathematics Instructor left card informing patient of the avaialbility of spiritual care at [facility] and offered God's blessings.
[2021-05-07 11:29] LABS: HIV 1/2 Antibodies Non-Reactive; HIV-1p24 Antigen Non-Reactive
--- NOTE | 2021-05-07 14:50 | NUR ---
PT ESCORTED WITH PT BELONGINGS OUT OF HOSPITAL, NO OTHER NEEDS.
[2021-05-07] MEDS ORDERED: ASPIRIN E.C. 8181 MG PO (15:50)
[2021-05-07] MEDS ORDERED: NORVASC 10MG10 MG PO (15:50)
[2021-05-07] MEDS ORDERED: DOXYCYCLINE 10100 MG PO (15:50)
[2021-05-07] MEDS ORDERED: LIPITOR 40MG TA40 MG PO (15:50)
[2021-05-07] MEDS ORDERED: PROTONIX 40MG T40 MG PO (15:50)
[2021-05-07] MEDS ORDERED: APRESOLINE 25MG25 MG PO (15:51)
[2021-05-07] MEDS ORDERED: COREG 25MG25 MG/TAB PO (15:51)
[2021-05-07] MEDS ORDERED: OMNICEF 300MG300 MG PO (15:56)
--- NOTE | 2021-05-07 16:39 | NUR ---
DISCHARGE EDUCATION PROVIDED, VOUCHER FOR MEDICATIONS GIVEN TO PT, IV REMOVED AFTER IV ANTIBIOTICS AND PO HTN MEDICATIONS GIVEN. NO OTHER NEEDS
--- NOTE | 2021-05-07 16:49 | NUR ---
The patient is independent. The patient to discharge home today, 05/07. The patient is needing a med voucher. Voucher sent to [facility]. The patient agreeable to picking them up. No other needs.
== END 2021-05-07 16:50 | disposition home or self-care (01) | DRG 281 ==
LOC: COL.ER 04:58 → MEDICAL 07:21
PROVIDERS: Personal Emergency Response Attendant; Physician Assistant; ADMIT Internal Medicine
DX: I16.1 Hypertensive emergency (principal); I21.4 Non-ST elevation (NSTEMI) myocardial infarction; N39.0 Urinary tract infection, site not specified; N17.9 Acute kidney failure, unspecified; I42.2 Other hypertrophic cardiomyopathy; F12.10 Cannabis abuse, uncomplicated; N18.9 Chronic kidney disease, unspecified; D35.00 Benign neoplasm of unspecified adrenal gland; F15.10 Other stimulant abuse, uncomplicated; R31.9 Hematuria, unspecified; Z87.891 Personal history of nicotine dependence; Z87.11 Personal history of peptic ulcer disease
CPT/HCPCS: 86780; 99239; J0360; J0696; J1644; J7030